=== PATIENT | male | born 1950 | race Caucasian/White ===

== ENCOUNTER 2017-03-04 10:54 | Emergency (ER) | payer MEDICARE, BC ==
--- NOTE | ~2017-03-04 | ER ---
PATIENT'S NAME: [facility] AGE: 66 Y [address] ROOM: [place] [address] LOCATION: [facility] ADMIT DATE: 03/04/2017 ER/Outpatient Report DISCHARGE DATE: 03/04/2017 FAMILY PHYSICIAN: Jesse Guthrie MD ATTENDING PHYSICIAN: Dony Altamirano Time of arrival: 1054 hours. Time of evaluation: 1103 hours. CHIEF COMPLAINT: Right flank pain. HISTORY OF PRESENT ILLNESS: The patient is a 66-year-old male, who presents to the emergency department today with chief complaint of right flank pain. He reports he has had some fevers and chills. It has all been less than 100.0. Denies any nausea or vomiting. No diarrhea or constipation. No urinary frequency, urgency, or painful urination. He has had some blood in his urine. The patient did have an ultrasound performed, which showed a 12 mm right kidney stone. Pain is currently 3/10 in severity. He has been on Flomax for week. PAST MEDICAL HISTORY: Hypertension and kidney stones. PAST SURGICAL HISTORY: Sinus and knees. SOCIAL HISTORY: The patient denies any tobacco use. Reports rare alcohol use. Denies any illicit drug use. ALLERGIES: TO PENICILLIN, WHICH CAUSES SWELLING. MEDICINES: 1. Flomax. 2. Baby aspirin. 3. Metoprolol. 4. Lisinopril. REVIEW OF SYSTEMS: All systems are reviewed by myself and are negative with the exception of those discussed in HPI and past medical history. PATIENT'S NAME: [facility] AGE: 66 Y [address] ROOM: [place] [address] LOCATION: [facility] ADMIT DATE: 03/04/2017 ER/Outpatient Report DISCHARGE DATE: 03/04/2017 FAMILY PHYSICIAN: Jesse Guthrie MD ATTENDING PHYSICIAN: Dony Altamirano PHYSICAL EXAMINATION: VITAL SIGNS: Temperature 97.4, blood pressure 142/81, weight 105 kg, pulse 67, respiratory rate 16, oxygen saturation 99% on room air. Temperature 97.4, tympanic. GENERAL: The patient is a 66-year-old male, appears of stated age. Well developed and well nourished. HEENT: Normocephalic and atraumatic. Mucous membranes moist. NECK: Supple. There is no nuchal rigidity. CARDIOVASCULAR: Regular rate and rhythm. No murmurs, rubs, or gallops. LUNGS: Clear to auscultation bilaterally. No wheezes, rales, or rhonchi. ABDOMEN: Soft. Mild right lower quadrant tenderness to palpation. There is no rebound, rigidity, or guarding. Positive bowel sounds. MUSCULOSKELETAL: The patient moves all 4 extremities. SKIN: Warm and dry with no rashes or lesions noted. LABORATORY DATA AND X-RAYS: Urinalysis shows 250 blood, 50 to 100 rbc's. CBC is normal. CMP is unremarkable. LFTs are normal. CT scan of the abdomen and pelvis obtained. There is a nonobstructive 13 mm stone in the left. There is a 2 mm distal right ureter stone with no hydronephrosis. There were several other nonobstructive intrarenal stones on the left. IMPRESSION: 1. A 2-mm distal right ureterolithiasis without evidence of hydronephrosis. 2. Nonobstructive nephrolithiasis on the left. 3. Initial visit. EMERGENCY DEPARTMENT COURSE: The patient brought back to the examination room. Seen and evaluated by myself. IV is established. Laboratory analysis obtained as described above. A CT scan was also obtained as described above. The patient does not require any pain medication at this time. I have discussed the results with the patient, his , and his son who is at the bedside. The patient is to continue his Flomax. I have written a prescription for [place] for pain. I have recommended to call [facility] for a followup appointment. I have asked to follow up with Dr. Guthrie in 2 to 3 days for re-evaluation. I have discussed the return to care instructions including worsening symptoms or any other concerns. Return to the emergency department as soon as possible. The patient is agreeable and family is agreeable. They are without further questions at this time. DISPOSITION: The patient is discharged home in good condition. PATIENT'S NAME: [facility] AGE: 66 Y [address] ROOM: [place], [place] [address] LOCATION: [facility] ADMIT DATE: 03/04/2017 ER/Outpatient Report DISCHARGE DATE: 03/04/2017 FAMILY PHYSICIAN: Jesse Guthrie MD ATTENDING PHYSICIAN: Dony Altamirano DO IGLESIA LO/rudy /[id number] CC: Jesse Guthrie MD d: 03/04/17 1533 t: 03/07/17 1759, OUTPATIENT REPORT
[2017-03-04 11:37] LABS: BASOPHIL # 0.1 K/uL (0.0-0.2); BASOPHIL % 1.5 %; EOSINOPHIL # 0.2 K/uL (0.0-0.5); EOSINOPHIL % 4.9 %; HEMATOCRIT 42.7 % (37.0-53.0); HEMOGLOBIN 13.6 g/dL (11.0-16.0); IMMATURE GRANULOCYTE % 0.2 %; LYMPHOCYTE % 21.4 %; MCH 26.7 pg (27.0-34.0); MCHC 31.9 gm/dL (32.0-36.5); MCV 83.9 fl (83.0-98.0); MONOCYTE # 0.4 K/uL (0.0-1.0); MONOCYTE % 9.1 %; MPV 9.3 fl (9.4-12.4); NEUTROPHIL % 62.9 %; NRBC % 0 /100WBC (0-0.00); PLATELET COUNT 250 K/uL (150-450); RBC 5.09 M/uL (3.50-5.50); RDW-CV 13.3 % (11.9-14.6); WBC 4.7 K/uL (4.0-11.0)
[2017-03-04 11:40] LABS: BILIRUBIN URINE NEGATIVE (NEGATIVE); BLOOD URINE 250 /UL (NEGATIVE); COLOR URINE YELLOW (YELLOW); GLUCOSE URINE NEGATIVE (NEGATIVE); KETONE URINE NEGATIVE (NEGATIVE); LEUKOCYTES URINE NEGATIVE /UL (NEGATIVE); NITRITE URINE NEGATIVE (NEGATIVE); PROTEIN URINE NEGATIVE (NEGATIVE); SPEC GRAVITY URINE 1.025 (1.003-1.035); TURBIDITY URINE 1+ (CLEAR); UROBILINOGEN URINE NORMAL (NORMAL)
[2017-03-04 11:56] LABS: ALBUMIN 3.3 gm/dL (3.5-5.0); ALK PHOS 96 IU/L (33-138); ALT 18 IU/L (12-78); AST 15 IU/L (10-40); BLOOD UREA NITROGEN 18 mg/dL (6-24); CALCIUM 8.8 mg/dL (8.5-10.5); CHLORIDE 112 mMol/L (96-110); CO2 22 mMol/L (22-32); CREATININE 0.8 mg/dL (0.6-1.3); ESTIMATED GFR (MDRD EQUATION) > 60; SODIUM 142 mMol/L (135-145); TOTAL BILIRUBIN 0.6 mg/dL (0.0-1.5)
[2017-03-04 12:16] LABS: AMORPHOUS URINE 1+ (NEGATIVE); BACTERIA URINE NEGATIVE (NEGATIVE); EPITHELIAL URINE RARE #/HPF (NEGATIVE); MUCUS URINE 2+ (NEGATIVE); RBC URINE 50-100 #/HPF (NEGATIVE); WBC URINE NEGATIVE #/HPF (NEGATIVE)
[2017-03-12] MEDS ORDERED: ASPIRIN EC81 MG PO (16:23)
[2017-03-12] MEDS ORDERED: FLOMAX0.4 MG PO (16:23)
[2017-03-12] MEDS ORDERED: LISINOPRIL20 MG PO (16:25)
[2017-03-12] MEDS ORDERED: METOPROLOL SUCC50 MG PO (16:25)
[2017-03-18] MEDS ORDERED: ZYLOPRIM300 MG PO (14:28)
[2017-03-18] MEDS ORDERED: NORCO 5-325 TA1 EACH PO (14:28)
== END 2017-03-04 12:54 | disposition disaster alternative care site (69) ==
LOC: GMED 10:54
PROVIDERS: Emergency Medicine
DX: N20.2 Calculus of kidney with calculus of ureter (principal); I10 Essential (primary) hypertension; Z87.442 Personal history of urinary calculi; Z98.890 Other specified postprocedural states; Z88.0 Allergy status to penicillin; Z79.82 Long term (current) use of aspirin; Z79.899 Other long term (current) drug therapy

== ENCOUNTER → 2017-03-18 | Day surgery (SDC) | payer MEDICARE, BC ==
[~2017-03-18] VITALS: Ht 190.5 cm; Wt 101.4 kg
[~2017-03-18] MED LIST: ASPIRIN EC81 MG PO; FLOMAX0.4 MG PO; LISINOPRIL20 MG PO; METOPROLOL SUCC50 MG PO; NORCO 5-325 TA1 EACH PO; ZYLOPRIM300 MG PO
--- NOTE | ~2017-03-18 | OR ---
PATIENT'S NAME: GABRIELLE [facility] AGE: 66 Y [address] ROOM: [place] [address] [place] [facility] [place]: 03/18/2017 OR/Procedure Report DISCHARGE DATE: FAMILY PHYSICIAN: Jesse Guthrie MD ATTENDING PHYSICIAN: Jose Bentley SURGEON: Jose Bentley MD CELL LEAD: DATE OF PROCEDURE: 03/18/2017 HISTORY: Gabrielle was seen with a symptomatic right ureteral calculus and a large left renal stone. He had been seen in the Emergency Room approximately two weeks ago with severe right-sided symptoms. He was found to have a 2-mm obstructing stone in the right distal ureter. He had a 13-mm stone non- obstructing on the left. Fortunately, he has not been having a lot of symptoms with the right side. He has not passed the stone. He presented at this time for followup and intervention. I had last done the stone intervention approximately five years ago. He had predominantly uric acid stones. Specifically, it was 80% uric acid with 20% calcium oxalate dihydrate. I had started him on allopurinol at that time. He has not continued on it. He is taking tamsulosin. He tells me that was recently started to help with passage of the ureteral calculus. He has not been on it for BPH symptoms. DESCRIPTION OF PROCEDURE: Having obtained his informed consent, the patient was taken to the Cystoscopy Suite first. He was prepped and draped sterilely and in lithotomy position. IV sedation was administered. We ended up switching to general by laryngeal airway as he was doing a lot of coughing and moving. The cystoscope was assembled and guided into the urethra. The course of the urethra was unremarkable back to the prostatic urethra. We had to look up and over his middle lobe. I suspect he may get some additional benefit from the alpha-abbie as far as his voiding is concerned. The bladder itself was remarkable for some floating yellow crystals. This is consistent with his past history of uric acid stones. Bladder examination was confirmed with a 70- degree lens. With no stone retrieved from the right and because we could not see anything on fluoroscopy, I passed a guidewire. It bumped into an obstruction just above the intramural tunnel. I obtained a retrograde. Indeed, there was a persistent filling defect. I suspect this was that 2-mm stone from his March 04, 2017, CT scan. I advanced the guidewire up the right side. I followed that with the semi- PATIENT'S NAME: GABRIELLE [facility] AGE: 66 Y [address] ROOM: [place], [place] [address] [place] [facility] [place] DATE: 03/18/2017 OR/Procedure Report DISCHARGE DATE: FAMILY PHYSICIAN: Jesse Guthrie MD ATTENDING PHYSICIAN: Jose Bentley rigid ureteroscope. Indeed, the stone was visualized. It was small enough that we should be able to extract it without any dilation. A nitinol basket was passed. The stone was engaged and extracted without difficulty. The stone will be sent for analysis. Since he was going to require a stent for the 13-mm stone, I felt it reasonable to go ahead and place one on the right to avoid any ongoing obstruction from edema after the instrumentation. Therefore, the safety wire was backloaded into the cystoscope. Over that, I passed a 4.8 Multi-Link stent. We had a nice level of placement. I turned my attention to the left side. Having had the benefit of the CT scan, I believe I could make out this faintly calcified stone. Again, he had 20% calcium oxalate dihydrate as a component in the past. To be certain, I passed a retrograde catheter up the left. Retrograde was obtained. If need be, I was going to proceed with the continuous contrast instillation for localization. We did not need it. The filling defect noted on fluoroscopy was our stone. Therefore, a 4.8 Multi-Link stent was placed on the left. We had both stents in good position. The patient was now moved to the Lithotripsy Suite. The stone was brought in the second focal point ellipsoid and fragmentation was begun. We started at 14 kV and worked up to a maximum of 20 kV. It appeared to be a soft stone. It fragmented nicely. I could not appreciate any residual after 2800 impulses. The patient tolerated the procedure well. ESTIMATED BLOOD LOSS: Blood loss was minimal. SPECIMENS: The right ureteral stone was sent for analysis. POSTOPERATIVE CONDITION: The patient returned to Recovery awake and in stable condition. PLAN: We will get him started back on his allopurinol. He will be seen in three weeks for a postoperative visit. We will check an ultrasound to make sure there are no significant residual fragments on the left side. MD SAI NARVAEZ/rudy PATIENT'S NAME: GABRIELLE [facility] AGE: 66 Y [address] ROOM: [place] [address] [place] [facility] [place] DATE: 03/18/2017 OR/Procedure Report DISCHARGE DATE: FAMILY PHYSICIAN: Jesse Guthrie MD ATTENDING PHYSICIAN: Jose Bentley /[id number] d: 03/18/172041 t: 03/25/17 1024, OPERATIVE SUMMARY
== END | disposition disaster alternative care site (69) ==
LOC: GPOC 03-11 15:00 → GSDC 07:00
PROC: 0TC18ZZ Extirpation of Matter from Left Kidney, Via Natural or Artificial Opening Endoscopic (ICD-10-PCS; principal; 2017-03-18)
PROC: 0TC68ZZ Extirpation of Matter from Right Ureter, Via Natural or Artificial Opening Endoscopic (ICD-10-PCS; 2017-03-18)
PROC: 0T788DZ Dilation of Bilateral Ureters with Intraluminal Device, Via Natural or Artificial Opening Endoscopic (ICD-10-PCS; 2017-03-18)
DX: N20.2 Calculus of kidney with calculus of ureter (principal); G47.33 Obstructive sleep apnea (adult) (pediatric); I10 Essential (primary) hypertension; M06.9 Rheumatoid arthritis, unspecified; Z99.89 Dependence on other enabling machines and devices; Z96.652 Presence of left artificial knee joint; Z88.0 Allergy status to penicillin; Z79.82 Long term (current) use of aspirin; Z79.899 Other long term (current) drug therapy
CPT/HCPCS: C1769; C2617; J1956; J2001; J2250; J7120

== ENCOUNTER → 2017-04-09 | Outpatient (CLI) | payer MEDICARE, BC | END | disposition disaster alternative care site (69) | LOC: GRAD 09:35 | DX: Z08 Encounter for follow-up examination after completed treatment for malignant neoplasm (principal); Z87.442 Personal history of urinary calculi; Z96.0 Presence of urogenital implants ==